=== PATIENT | female | born 1985 | race American Indian/Alaskan Native ===

== ENCOUNTER 2016-11-13 13:47 | Emergency (ER) | payer MEDICAID | END 2016-11-13 13:48 | disposition left against medical advice (07) | LOC: ED 13:47 | DX: Z04.1 Encounter for examination and observation following transport accident (principal); V89.2XXA Person injured in unspecified motor-vehicle accident, traffic, initial encounter; Y93.9 Activity, unspecified; Y99.9 Unspecified external cause status; Y92.9 Unspecified place or not applicable; Z53.21 Procedure and treatment not carried out due to patient leaving prior to being seen by health care provider ==

== ENCOUNTER 2017-12-29 09:06 | Emergency (ER) | payer MEDICAID | END 2017-12-29 09:07 | disposition left against medical advice (07) | LOC: ED 09:06 | DX: R10.9 Unspecified abdominal pain (principal); Z53.21 Procedure and treatment not carried out due to patient leaving prior to being seen by health care provider ==

== ENCOUNTER 2018-12-15 18:06 | Emergency (ER) | payer OTHER ==
--- NOTE | 2018-12-15 18:14 | Event Note ---
ED Screening Note Date of service: 12/15/18 Time: 18:12 ED Screening Note: 33 y/o comes in for body pains with lower leg swelling times 3 days. PHM asthma This initial assessment/diagnostic orders/clinical plan/treatment(s) is/are subject to change based on patients health status, clinical progression and re- assessment by fellow clinical providers in the ED. Further treatment and workup at subsequent clinical providers discretion. Patient/guardian urged not to elope from the ED as their condition may be serious if not clinically assessed and managed. Initial orders include:
[2018-12-15 18:53] LABS: Basophils # (Auto) 0.1 K/mm3 (0.0-0.1); Basophils % (Auto) 1.5 % (0.0-1.8); Eosinophils # (Auto) 0.1 K/mm3 (0.0-0.4); Eosinophils % (Auto) 1.3 % (0.0-4.3); Hematocrit 32.8 % (30.3-42.9); Hemoglobin 10.8 gm/dl (10.1-14.3); Lymphocytes % (Auto) 38.8 % (13.4-35.0); Mean Corpuscular HGB Conc 33 % (30-34); Mean Corpuscular Volume 85 fl (79-97); Monocytes # (Auto) 0.7 K/mm3 (0.0-0.8); Monocytes % (Auto) 8.6 % (0.0-7.3); Platelet Count 365 K/mm3 (140-440); Red Blood Count 3.87 M/mm3 (3.65-5.03)
[2018-12-15 19:22] LABS: BUN/Creatinine Ratio 14; Blood Urea Nitrogen 10 mg/dL (7-17); Calcium 8.7 mg/dL (8.4-10.2); Hemolysis Index 8
[2018-12-15] MEDS ORDERED: ULTRAM PO ONE (19:29)
--- NOTE | 2018-12-15 19:34 | Emergency Department Report ---
ED General Adult HPI - General Chief complaint: Extremity Problem,Nontraumatic Stated complaint: BODY ACHE/LEG/FEET SWOLLEN Time Seen by Provider: 12/15/18 19:22 Source: patient Mode of arrival: Ambulatory Limitations: No Limitations - History of Present Illness Initial comments: Patient is a 33 y/o comes in for body pains with lower leg swelling times 3 days. 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 denies: chest pain, diaphoresis, fever/chills, headaches, loss of appetite, nausea/vomiting, rash, seizure, shortness of breath, syncope, weakness - Related Data Home Medications Medication Instructions Recorded Confirmed Last Taken ALPRAZolam [Xanax TAB] 1 mg PO TID PRN 11/03/14 11/03/14 10/13/14 FLUoxetine HCL [PROzac] 20 mg PO QDAY 11/03/14 11/03/14 10/13/14 Quetiapine Fumarate [Seroquel] 100 mg PO DAILY 11/03/14 11/03/14 10/13/14 Previous Rx's Medication Instructions Recorded Last Taken Type Albuterol Sulfate [Proventil HFA] 1 - 2 puff IH Q4H PRN #1 hfa.aer.ad 12/18/13 Unknown Rx HYDROcodone/APAP 5-325 [[place] 1 each PO Q6HR PRN #12 tablet 12/18/13 11/02/14 Rx 5/325 mg] traMADol [Ultram 50 MG tab] 50 mg PO Q6HR PRN #20 tablet 11/03/14 Unknown Rx Ketorolac [Toradol] 10 mg PO Q6H PRN #20 tablet 11/11/15 Unknown Rx Azithromycin [Zithromax Z-POONAM] 0 mg PO DAILY #6 tab 01/13/16 Unknown Rx Fluconazole [Diflucan TAB] 150 mg PO ONCE #1 tablet 01/13/16 Unknown Rx HYDROcodone/APAP 5-325 [[place] 1 - 2 each PO Q6HR PRN #12 tablet 01/13/16 Unknown Rx 5/325] Ibuprofen [Motrin 800 MG tab] 800 mg PO Q8HR PRN #20 tablet 01/13/16 Unknown Rx Promethazine [Phenergan TAB] 25 mg PO Q6HR PRN #10 tab 01/13/16 Unknown Rx Ibuprofen [Motrin 800 MG tab] 800 mg PO Q8HR PRN #30 tablet 12/15/18 Unknown Rx Menthol/Camphor [[place] 1 applicatio TP QID PRN #1 tube 12/15/18 Unknown Rx Ointment] Allergies Allergy/AdvReac Type Severity Reaction Status Date / Time amoxicillin trihydrate AdvReac Rash Verified 11/11/15 16:45 [From Amoxil] ED Review of Systems ROS: Stated complaint: BODY ACHE/LEG/FEET SWOLLEN Other details as noted in HPI Constitutional: malaise Eyes: denies: eye pain, eye discharge, vision change ENT: denies: ear pain, throat pain Respiratory: cough. denies: shortness of breath, wheezing Cardiovascular: denies: chest pain, palpitations, dyspnea on exertion, orthopnea, edema, syncope, paroxysmal nocturnal dyspnea Endocrine: no symptoms reported Gastrointestinal: denies: abdominal pain, nausea, vomiting, diarrhea Genitourinary: denies: urgency, dysuria, discharge Musculoskeletal: myalgia, other (bilat le pain swelling ) Skin: denies: rash, lesions Neurological: denies: headache, weakness, paresthesias Psychiatric: denies: anxiety, depression Hematological/Lymphatic: denies: easy bleeding, easy bruising ED Past Medical Hx - Past Medical History Hx GERD: Yes Hx Psychiatric Treatment: Yes (depression, anxiety) Hx Asthma: Yes Additional medical history: generalized pain - Surgical History Additional Surgical History: tubal ligation - Social History Smoking Status: Current Every Day Smoker Substance Use Type: Marijuana - Medications Home Medications: Home Medications Medication Instructions Recorded Confirmed Last Taken Type Albuterol Sulfate [Proventil HFA] 1 - 2 puff IH Q4H PRN #1 hfa.aer.ad 12/18/13 11/03/14 Unknown Rx HYDROcodone/APAP 5-325 [[place] 1 each PO Q6HR PRN #12 tablet 12/18/13 11/03/14 11/02/14 Rx 5/325 mg] ALPRAZolam [Xanax TAB] 1 mg PO TID PRN 11/03/14 11/03/14 10/13/14 History FLUoxetine HCL [PROzac] 20 mg PO QDAY 11/03/14 11/03/14 10/13/14 History Quetiapine Fumarate [Seroquel] 100 mg PO DAILY 11/03/14 11/03/14 10/13/14 History traMADol [Ultram 50 MG tab] 50 mg PO Q6HR PRN #20 tablet 11/03/14 Unknown Rx Ketorolac [Toradol] 10 mg PO Q6H PRN #20 tablet 11/11/15 Unknown Rx Azithromycin [Zithromax Z-POONAM] 0 mg PO DAILY #6 tab 01/13/16 Unknown Rx Fluconazole [Diflucan TAB] 150 mg PO ONCE #1 tablet 01/13/16 Unknown Rx HYDROcodone/APAP 5-325 [[place] 1 - 2 each PO Q6HR PRN #12 tablet 01/13/16 Unkno wn Rx 5/325] Ibuprofen [Motrin 800 MG tab] 800 mg PO Q8HR PRN #20 tablet 01/13/16 Unknown Rx Promethazine [Phenergan TAB] 25 mg PO Q6HR PRN #10 tab 01/13/16 Unknown Rx Ibuprofen [Motrin 800 MG tab] 800 mg PO Q8HR PRN #30 tablet 12/15/18 Unknown Rx Menthol/Camphor [[place] 1 applicatio TP QID PRN #1 tube 12/15/18 Unknown Rx Ointment] ED Physical Exam - General Limitations: No Limitations General appearance: alert, in no apparent distress - Head Head exam: Present: atraumatic, normocephalic - Eye Eye exam: Present: normal appearance, PERRL, EOMI Pupils: Present: normal accommodation - ENT ENT exam: Present: normal orophraynx, mucous membranes moist, TM's normal bilaterally, normal external ear exam - Neck Neck exam: Present: normal inspection, full ROM, lymphadenopathy. Absent: tenderness, meningismus, thyromegaly - Expanded Neck Exam Expanded Neck exam: Absent: tenderness, midline deformity, anterior neck swelling, thyroid mass, carotid bruit, tracheal deviation - Respiratory Respiratory exam: Present: normal lung sounds bilaterally. Absent: respiratory distress, wheezes, rales, rhonchi, stridor, chest wall tenderness, prolonged expiratory - Cardiovascular Cardiovascular Exam: Present: regular rate, normal rhythm, normal heart sounds. Absent: systolic murmur, diastolic murmur, rubs, gallop - GI/Abdominal GI/Abdominal exam: Present: soft, normal bowel sounds. Absent: distended, tenderness, bruit, hernia - Rectal Rectal exam: Present: deferred - Extremities Exam Extremities exam: Present: normal inspection, full ROM, normal capillary refill, other (mild bilat le swelling no edema distal pulses intact rom intact ). Abs ent: tenderness, pedal edema, joint swelling, calf tenderness - Back Exam Back exam: Present: normal inspection, full ROM. Absent: tenderness, CVA tenderness (R), CVA tenderness (L), muscle spasm, paraspinal tenderness, vertebral tenderness, rash noted - Neurological Exam Neurological exam: Present: alert, oriented X3, CN II-XII intact, normal gait, reflexes normal. Absent: motor sensory deficit - Psychiatric Psychiatric exam: Present: normal affect, normal mood - Skin Skin exam: Present: warm, dry, intact, normal color. Absent: rash ED Course Vital Signs 12/15/18 18:12 Temperature 98.2 F Pulse Rate 95 H Respiratory 18 Rate Blood Pressure 118/74 ED Medical Decision Making - Lab Data Result diagrams: 12/15/18 18:20 12/15/18 18:20 Labs 12/15/18 12/15/18 18:20 18:20 WBC 7.8 RBC 3.87 Hgb 10.8 Hct 32.8 MCV 85 MCH 28 MCHC 33 RDW 16.0 H Plt Count 365 Lymph % (Auto) 38.8 H Coke % (Auto) 8.6 H Eos % (Auto) 1.3 Baso % (Auto) 1.5 Lymph # 3.0 Coke # 0.7 Eos # 0.1 Baso # 0.1 Seg Neutrophils % 49.8 Seg Neutrophils # 3.9 Sodium 139 Potassium 3.8 Chloride 103.6 Carbon Dioxide 26 Anion Gap 13 BUN 10 Creatinine 0.7 Estimated GFR > 60 BUN/Creatinine Ratio 14 Glucose 83 Calcium 8.7 - EKG Data EKG shows normal: sinus rhythm, axis, intervals, QRS complexes, ST-T waves Rate: normal - EKG Data Interpretation: normal EKG (ekg interp by ED attending. No ST Elevated MA ) - Radiology Data Radiology results: report reviewed, image reviewed Ordering Physician: JOANNA DANIELS NP Date of Service: 12/15/18 Procedure(s): XR chest routine 2V Accession Number(s): [id number] cc: JOANNA DANIELS NP Fluoro Time In Minutes: CHEST 2 VIEWS INDICATION / CLINICAL INFORMATION: cough dizziness. Swollen ankles. COMPARISON: None available. FINDINGS: SUPPORT DEVICES: None. HEART / MEDIASTINUM: No significant abnormality. LUNGS / PLEURA: No significant pulmonary or pleural abnormality. No pneumot horax. ADDITIONAL FINDINGS: No significant additional findings. IMPRESSION: 1. No acute findings. Signer Name: Fab Boothe MD Signed: 12/15/2018 9:00 PM Workstation Name: [id number] Transcribed By: MARCIN Dictated By: Jonh Boothe MD Electronically Authenticated By: Jonh Boothe MD Signed Date/Time: 12/15/182099 DD/ 58 TD/TT: - Medical Decision Making cxr normal , ekg nsr no ST Elevated MA this is musculoskeletal pain will follow up with pcp in 2-3 days will dc to home with rx for ibuprofen and analgesic balm pt verabalized agreement and understanding of discharge plan. Critical care attestation.: If time is entered above; I have spent that time in minutes in the direct care of this critically ill patient, excluding procedure time. ED Disposition Clinical Impression: Bilateral leg and foot pain Disposition: DC-01 TO HOME OR SELFCARE Is pt being admited?: No Does the pt Need Aspirin: No Condition: Stable Instructions: Musculoskeletal Pain (ED) Prescriptions: Ibuprofen [Motrin 800 MG tab] 800 mg PO Q8HR PRN #30 tablet PRN Reason: pain Menthol/Camphor [[place] Ointment] 1 applicatio TP QID PRN #1 tube PRN Reason: pain Referrals: PRIMARY CARE, [Primary Care Provider] - 3-5 Days Forms: AMA Form, Work/School Release Form(ED) Time of Disposition: 21:11
--- NOTE | 2018-12-15 21:04 | XRay Report ---
CHEST 2 VIEWS INDICATION / CLINICAL INFORMATION: cough dizziness. Swollen ankles. COMPARISON: None available. FINDINGS: SUPPORT DEVICES: None. HEART / MEDIASTINUM: No significant abnormality. LUNGS / PLEURA: No significant pulmonary or pleural abnormality. No pneumothorax. ADDITIONAL FINDINGS: No significant additional findings. IMPRESSION: 1. No acute findings. Signer Name: Fab Boothe MD Signed: 12/15/2018 9:00 PM Workstation Name: [id number]
[2018-12-15 21:18] VITALS: BP 116/85
== END 2018-12-15 21:18 | disposition home or self-care (01) ==
LOC: ED 18:06
DX: M79.605 Pain in left leg (principal); M79.604 Pain in right leg; M79.672 Pain in left foot; M79.671 Pain in right foot; K21.9 Gastro-esophageal reflux disease without esophagitis; F41.9 Anxiety disorder, unspecified; J45.909 Unspecified asthma, uncomplicated; F17.200 Nicotine dependence, unspecified, uncomplicated; F12.10 Cannabis abuse, uncomplicated
CPT/HCPCS: 36415; 71046; 80048; 85025; 93005; 93010